=== PATIENT | male | born 1995 | race Hispanic/Latino ===

== ENCOUNTER 2017-08-28 07:20 | Day surgery (SDC) | payer BC ==
[2017-08-25 12:52] LABS: Absolute Lymphocytes (CBC) 2.2 K/uL (0.7-4.9); Absolute Monocytes 0.6 K/uL (0.1-1.3); Absolute Neutrophil 3.5 K/uL (1.8-8.0); Basophils % 0.6 % (0-1.3); Eosinophils % 3.3 % (0-4.4); Hematocrit 43.1 % (39.6-49.0); Lymphocytes % 33.3 % (15.3-44.8); MCH 28.4 pg (27.0-35.0); MCV 84.7 fL (80-100); MPV 7.7 fL (7.6-11.3); Monocytes % 9.5 % (3.3-12.3); RBC Red Blood Cell Count 5.08 M/uL (4.33-5.43)
[2017-08-25 13:00] LABS: Bicarbonate 27 mEq/L (21-31); Glucose Level 96 mg/dL (65-120); Potassium 4.4 mEq/L (3.6-5.0); Sodium Level 141 mEq/L (135-145)
[2017-08-25 13:01] LABS: BUN Blood Urea Nitrogen 13 mg/dL (6-20)
[2017-08-28] MEDS ORDERED: Ringers Lactate 1,000 ML IV ONE (07:37)
[2017-08-28] MEDS ORDERED: LIDOCAINE 2% MPF 5 ML VIAL ONE (08:06)
[2017-08-28] MEDS ORDERED: FENTANYL CITR 100 MCG/2 ML ONE (08:06)
[2017-08-28] MEDS ORDERED: MIDAZOLAM HCL 2 MG/2 ML INJ ONE (08:06)
[2017-08-28] MEDS ORDERED: PROPOFOL 200 MG/20 ML VIAL IV ONE (08:06)
[2017-08-28] MEDS ORDERED: CIPROFLOXACIN 400mg IV 400 MG/200 ML BAG IV ONE (08:31)
[2017-08-28] MEDS ORDERED: KETOROLAC 30 MG/ML INJ ONE (09:01)
--- NOTE | 2017-08-28 09:21 | P.BOP ---
Preoperative diagnosis: perianal pain, bulging, possible fistula Postoperative diagnosis: same, perianal abscess Primary procedure: 1. EUA, 2. Anoscopy, 3. Rigid prostoscopy Secondary procedure: 4. Fistulectomy, 5. I+D perianal abscess Estimated blood loss: <5cc Specimen: culture, fistula bx Findings: posterolateral fistula with associated abscess Anesthesia: General Complications: None Drain(s): Other Transferred to: Recovery Room Condition: Good
[2017-08-28] MEDS ORDERED: CODEINE 30MG/APAP 300MG TAB ONE (10:13)
--- NOTE | 2017-10-16 15:44 | OP ---
Surgeon: Howard Lowery MD Diagnoses: Perianal pain, perianal fistula, perianal abscess. Procedures: Anoscopy, proctoscopy, fistulectomy, I and D of perianal abscess. Disposition: Home. Activity: As tolerated. No heavy lifting. Followup: Follow up in my office in 1 week. Call for appointment [phone]. Instructions: Sitz baths 4 times a day and after every bowel movement. Medications: For medications, see orders. JESSICA/LALO Voice ID: [id number] Report ID: [id number]
--- NOTE | 2017-10-16 21:35 | OP ---
Date of Procedure: 08/28/2017 Surgeon: Howard Lowery MD Preoperative Diagnoses: Perianal pain, perianal bulging, possible fistula. Postoperative Diagnoses: Perianal abscess and fistula. Procedures: 1.Examination under anesthesia. 2.Anoscopy. 3.Rigid proctoscopy. 4.Fistulectomy. 5.Incision and drainage of perianal abscess, complex. Estimated Blood Loss: Less than 5 cc. Specimen: Culture, fistula biopsy. Findings: Posterolateral fistula with an associated deeper abscess. Anesthesia: General plus local. Indications: This is the case of a male, who comes to us with perianal bulging, perianal pain, and t enderness. Fully explained the need for examination under anesthesia, anoscopy, rigid proctoscopy, p ossible hemorrhoidectomy, possible fistulectomy, possible abscess drainage with benefits, alternative s, and risks including, but not limited to infection, bleeding, damage to adjacent structures, anesth esia complication, recurrence, anal stricture and incontinence, [place], and even . He also understa nds this may not relieve any symptoms. He might need more than one surgical intervention. He unders tood and signed a consent. Description Of Procedure: The patient was brought to the operating room, placed in supine position. Anesthesia was done without complication. The patient was placed in lithotomy position with proper protection. A time-out was called. The perianal area was prepped and draped in a sterile fashion. Rectal examination was done followed by a rigid proctoscopy all the way to about 15 cm limited by the amount of stools present with no masses seen. We believe it is a fistula on the posterolateral area of the anus and leading into a bulge in the area that we believe it could be an abscess so at that m oment, I proceeded to put an anoscope with a window on the side. This led me evaluate the anal canal and indeed we noticed a superficial fistula that was cannulized and then left open. This does not i nvolve the sphincter, but this with a deeper abscess on the perianal region and when we ex plored that area, we noticed a complex abscess with multiple loculations. They were explored, opened , and drained. The anal sphincter seems to be intact, fistula superficial to that, and the fistula t ract was removed. The area was cauterized and left to close by secondary intention. The abscess was also an open drain and irrigated until clear. The area was packed. The patient tolerated the proce dure well. Sponge count and instrument counts were correct. The patient tolerated the procedure wel l. The patient was sent to recovery in stable condition. JESSICA/LALO Voice ID: [id number] Report ID: [id number]
== END 2017-08-28 11:30 | disposition home or self-care (01) ==
LOC: OR 07:20
PROVIDERS: ATTEND Surgery
PROC: 0DJD8ZZ Inspection of Lower Intestinal Tract, Via Natural or Artificial Opening Endoscopic (ICD-10-PCS; 2017-08-28)
PROC: 0HB9XZZ Excision of Perineum Skin, External Approach (ICD-10-PCS; principal; 2017-08-28 08:30)
DX: K61.0 Anal abscess (principal); Z88.0 Allergy status to penicillin
CPT/HCPCS: 36415; 80048; 85025; 87070; 87075; 87077; 87186; 87205; 88304; 88305; J0744; J2250; J3010

== ENCOUNTER 2017-10-06 05:58 | Emergency (ER) | payer BC ==
--- NOTE | 2017-10-06 06:52 | EKG ---
Test Date: 2017-10-06 Test Time: 06:19:34 Policewoman: NEELIMA MEASUREMENT RESULTS: Intervals: Rate: 89 ID: [id number] QRSD: 98 QT: 322 QTc: 391 [place]: P: 44 ID: [id number] QRS: 60 T: 9 INTERPRETIVE STATEMENTS: Normal sinus rhythm Nonspecific ST and T wave abnormality Abnormal ECG No previous ECG available for comparison Electronically Signed On 10-06-17 06:51:38 CDT by Sharan Estrada
[2017-10-06 06:58] LABS: Absolute Lymphocytes (CBC) 2.3 K/uL (0.7-4.9); Absolute Monocytes 0.8 K/uL (0.1-1.3); Basophils % 0.6 % (0-1.3); Eosinophils % 2.7 % (0-4.4); Hematocrit 41.4 % (39.6-49.0); Lymphocytes % 31.9 % (15.3-44.8); MCH 28.6 pg (27.0-35.0); MCV 85.6 fL (80-100); Monocytes % 10.3 % (3.3-12.3); RBC Red Blood Cell Count 4.84 M/uL (4.33-5.43)
[2017-10-06 07:04] LABS: Bicarbonate 25 mEq/L (21-31); Glucose Level 112 mg/dL (65-120); Potassium 3.9 mEq/L (3.6-5.0); Sodium Level 139 mEq/L (135-145)
[2017-10-06 07:10] LABS: ALT/SGPT 41 IU/L (10-60); AST/SGOT 34 IU/L (10-42); Albumin 4.3 g/dL (3.2-5.5); Alkaline Phosphatase 61 IU/L (42-121); BUN Blood Urea Nitrogen 15 mg/dL (6-20); Bilirubin Direct 0.1 mg/dL (0-0.2); Bilirubin Total 0.3 mg/dL (0.3-1.2); Creatine Phosphokinase 593 IU/L (22-269); Magnesium 2.2 mg/dL (1.8-2.5); Protein, Total 8.1 g/dL (6.0-8.3)
[2017-10-06 07:16] LABS: CKMB Creatine Kinase MB 1.2 ng/ml (0.3-4.0)
[2017-10-06 07:21] LABS: Protime INR 1.07
--- NOTE | 2017-10-06 07:31 | RAD REPORT ---
EXAM DESCRIPTION: RAD - Chest Single View - 10/06/2017 7:09 am CLINICAL HISTORY: Left-sided numbness, left arm numbness and tingling, shortness of breath COMPARISON: None. TECHNIQUE: AP portable chest image was obtained 0703 hours . FINDINGS: Lungs are clear. Heart and vasculature are normal. No measurable pleural effusion and no p neumothorax. No gross bony abnormality seen. No acute aortic findings suspected. IMPRESSION: No acute cardiopulmonary process.
--- NOTE | 2017-10-06 07:32 | RAD REPORT ---
EXAM DESCRIPTION: CT - Head Brain Wo Cont - 10/06/2017 7:19 am CLINICAL HISTORY: Left-sided body and face numbness and tingling COMPARISON: None. TECHNIQUE: Axial 5 mm thick images of the head were obtained without IV contrast. All CT scans are performed using dose optimization technique as appropriate and may include automated exposure control or mA/KV adjustment according to patient size. FINDINGS: No intracranial hemorrhage, mass, edema or shift of mid-line structures. No acute infarcti on changes seen. No abnormal extra-axial fluid collections. Ventricles are normal. Mastoid air cells and visualized portions of the paranasal sinuses are clear. No acute bony findings. IMPRESSION: Negative non-contrast CT head examination. MR imaging could be performed if there are ongoing clinical concerns for an intracranial neurologic s ource for this symptom pattern.
[2017-10-06] MEDS ORDERED: NA CHLORIDE 0.9% 1,000 ML ONE (08:55)
--- NOTE | 2017-10-06 08:59 | ER ---
Nurse's Notes [facility] Name: Mark Newton Age: 22 yrs Sex: Male : 1995 Arrival Date: 10/06/2017 Time: 05:59 Bed 14 Private MD: Diagnosis: Paresthesia of skin-Left Arm and Leg Presentation: 10/06 06:17 Presenting complaint: Patient states: he is having tingling on left side of his body bb and face since approx 0500 this morning. Transition of care: patient was not received from another setting of care. Onset of symptoms was October 06, 2017 at 05:00. Risk Assessment: Do you want to hurt yourself or someone else? Patient reports no desire to harm self or others. Initial Sepsis Screen: Does the patient meet any 2 criteria? No. Patient's initial sepsis screen is negative. Does the patient have a suspected source of infection? No. Patient's initial sepsis screen is negative. Care prior to arrival: None. 06:17 Method Of Arrival: Ambulatory bb 06:17 Acuity: MARTIN 3 bb Historical: - Allergies: 06:18 PENICILLINS; bb - Home Meds: 06:18 None [Active]; bb - PMHx: 06:18 None; bb - PSHx: 06:18 pilonidal cyst; bb - Immunization history:: Adult Immunizations up to date. - Social history:: Smoking status: Patient/guardian denies using tobacco, Patient/guardian denies using alcohol, street drugs. - Ebola Screening: : No symptoms or risks identified at this time. Screenin:31 Abuse screen: Denies threats or abuse. Nutritional screening: No deficits noted. ea Tuberculosis screening: No symptoms or risk factors identified. Fall Risk None identified. Assessment: 06:20 General: Appears uncomfortable, Behavior is anxious. Pain: Denies pain. Neuro: Reports ea numbness in left arm and left side of face. 07:46 Reassessment: Patient appears in no apparent distress at this time. Patient states ae1 feeling better. Patient states symptoms have improved. 09:43 Reassessment: Patient appears in no apparent distress at this time. IV fluids infusing. ae1 Patient states feeling better. Patient states symptoms have improved. 10:00 Reassessment: Patient is alert, oriented x 3, equal unlabored respirations, skin aa5 warm/dry/pink. Vital Signs: 06:18 BP 156 / 93; Pulse 101; Resp 18 S; Temp 98.4(O); Pulse Ox 97% on R/A; Weight 111.13 kg ea (R); Height 5 ft. 7 in. (170.18 cm) (R); Pain 6/10; 06:18 BP 131 / 76; Pulse 88; Resp 18 S; Pulse Ox 98% on R/A; ea 07:44 BP 132 / 82; Pulse 84; Resp 18; Pulse Ox 97% on R/A; ae1 06:18 Body Mass Index 38.37 (111.13 kg, 170.18 cm) ea ED Course: 05:59 Patient arrived in ED. am2 06:08 Hanny Iraheta, LUCAS is Primary Nurse. ea 06:15 Inserted saline lock: 20 gauge in right antecubital area, using aseptic technique. ea Blood collected. 06:18 Triage completed. bb 06:18 Arm band placed on Patient placed in an exam room, on a stretcher, on pulse oximetry. bb Family accompanied patient. 06:20 Patient has correct armband on for positive identification. Bed in low position. Call ea light in reach. Side rails up X 1. 06:20 EKG done, by ED staff. ea 06:53 Piotr Leyva PA is PHCP. cp 06:53 Lan Page MD is Attending Physician. cp 07:08 X-ray completed. Portable x-ray completed in exam room. Patient tolerated procedure jb2 well. 07:08 XRAY Chest (1 view) In Process Unspecified. EDMS 07:[address] nj 07:19 CT completed. Patient tolerated procedure well. Patient moved back from CT. nj 07:19 CT Head Brain wo Cont In Process Unspecified. EDMS 10:00 No provider procedures requiring assistance completed. aa5 10:00 IV discontinued, intact, bleeding controlled, No redness/swelling at site. Pressure aa5 dressing applied. Administered Medications: 08:56 Drug: NS 0.9% 1000 ml Route: IV; Rate: 1 bolus; Site: right antecubital; ae1 Outcome: 08:59 Discharge ordered by . cp 10:00 Discharged to home ambulatory, with family. aa5 10:00 Condition: stable 10:00 Discharge instructions given to patient, Instructed on discharge instructions, follow up and referral plans. Demonstrated understanding of instructions, follow-up care. 10:02 Patient left the ED. aa5 Signatures: Dispatcher [employer] EDMS Hanson Devante jb2 Flor Brantley RN RN bb Soledad Damon RN RN aa5 Piotr Leyva PA PA cp Elliott, Andrea, RN RN ae1 Be Mcfadden Amanda am2 Hanny Iraheta RN RN ea Corrections: (The following items were deleted from the chart) 07:02 06:18 BP 156 / 93; Pulse 18bpm; Resp 18bpm; Spontaneous; Pulse Ox 97% RA; Temp 98.4F ea Oral; 111.13 kg Reported; Height 5 ft. 7 in. Reported; BMI: 38.3; Pain 6/10; bb
--- NOTE | 2017-10-06 08:59 | EDPHYS ---
Physician Documentation [facility] Name: Mark Newton Age: 22 yrs Sex: Male : 1995 Arrival Date: 10/06/2017 Time: 05:59 Bed 14 Private MD: ED Physician Lan Page HPI: 10/06 07:00 This 22 yrs old Male presents to ER via Ambulatory with complaints of Numbness cp - tingling to arm/leg/face. 07:00 The patient's problem is reported as tingling. Onset: The symptoms/episode cp began/occurred this morning, noticed upon awakening at 0500. Duration: The episode is continuous. Associated signs and symptoms: Pertinent negatives: abdominal pain, chest pain, dizziness, headache, shortness of breath, vertigo, vomiting, weakness. Severity of symptoms: in the emergency department the symptoms have improved mildly. Patient's baseline: Neuro: alert and fully oriented, Motor: no deficits, Ambulation: walks without assistance, Speech: normal. Historical: - Allergies: 06:18 PENICILLINS; bb - Home Meds: 06:18 None [Active]; bb - PMHx: 06:18 None; bb - PSHx: 06:18 pilonidal cyst; bb - Immunization history:: Adult Immunizations up to date. - Social history:: Smoking status: Patient/guardian denies using tobacco, Patient/guardian denies using alcohol, street drugs. - Ebola Screening: : No symptoms or risks identified at this time. ROS: 07:05 Constitutional: Negative for body aches, chills, fever, poor PO intake. cp 07:05 Eyes: Negative for injury, pain, redness, and discharge. cp 07:05 ENT: Negative for drainage from ear(s), ear pain, sore throat, difficulty swallowing, difficulty handling secretions. 07:05 Cardiovascular: Negative for chest pain, edema, palpitations. 07:05 Respiratory: Negative for cough, shortness of breath, wheezing. 07:05 Abdomen/GI: Negative for abdominal pain, nausea, vomiting, and diarrhea, black/tarry stool, rectal bleeding. 07:05 Back: Negative for pain at rest, pain with movement, radiated pain. 07:05 : Negative for urinary symptoms. 07:05 Skin: Negative for cellulitis, rash. 07:05 Neuro: Positive for tingling, of the left arm and left leg, Negative for altered mental status, dizziness, headache, speech changes, weakness. 07:05 All other systems are negative. Exam: 06:25 ECG was reviewed by the Attending Physician. cp 07:12 Constitutional: The patient appears in no acute distress, alert, awake, cp non-diaphoretic, non-toxic, well developed, well nourished. 07:12 Head/Face: Normocephalic, atraumatic. Eyes: Pupils equal round and reactive to light, cp extra-ocular motions intact. Lids and lashes normal. Conjunctiva and sclera are non-icteric and not injected. Cornea within normal limits. Periorbital areas with no swelling, redness, or edema. ENT: Nares patent. No nasal discharge, no septal abnormalities noted. Tympanic membranes are normal and external auditory canals are clear. Oropharynx with no redness, swelling, or masses, exudates, or evidence of obstruction, uvula midline. Mucous membranes moist. Neck: Trachea midline, no thyromegaly or masses palpated, and no cervical lymphadenopathy. Supple, full range of motion without nuchal rigidity, or vertebral point tenderness. No Meningismus. Chest/axilla: Normal chest wall appearance and motion. Nontender with no deformity. No lesions are appreciated. 07:12 Cardiovascular: Rate: tachycardic, Rhythm: regular, Pulses: Pulses are 2+ in right radial artery and left radial artery. Edema: is not appreciated, JVD: is not appreciated. 07:12 Respiratory: the patient does not display signs of respiratory distress, Respirations: normal, no use of accessory muscles, no retractions, no splinting, no tachypnea, labored breathing, is not present, Breath sounds: are clear throughout, no decreased breath sounds, no stridor, no wheezing. 07:12 Abdomen/GI: Inspection: abdomen appears normal, Bowel sounds: active, all quadrants, Palpation: abdomen is soft and non-tender, in all quadrants, rebound tenderness, is not appreciated, voluntary guarding, is not appreciated, involuntary guarding, is not appreciated. 07:12 Back: pain, is absent, ROM is normal. 07:12 Skin: cellulitis, is not appreciated, no rash present. 07:12 Neuro: Orientation: to person, place \T\ time. Mentation: lucid, able to follow commands, Cerebellar function: is grossly normal, Motor: moves all fours, strength is normal, Sensation: tingling, that is mild, of the left arm and left leg. 07:35 Radiologist reports: negative for acute findings cp Vital Signs: 06:18 BP 156 / 93; Pulse 101; Resp 18 S; Temp 98.4(O); Pulse Ox 97% on R/A; Weight 111.13 kg ea (R); Height 5 ft. 7 in. (170.18 cm) (R); Pain 6/10; 06:18 BP 131 / 76; Pulse 88; Resp 18 S; Pulse Ox 98% on R/A; ea 07:44 BP 132 / 82; Pulse 84; Resp 18; Pulse Ox 97% on R/A; ae1 06:18 Body Mass Index 38.37 (111.13 kg, 170.18 cm) ea MDM: 06:53 Patient medically screened. cp 07:00 Differential diagnosis: CVA, TIA, metabolic disorder, drug effects, electrolyte cp abnormality. 08:58 Data reviewed: vital signs, nurses notes, lab test result(s), EKG, radiologic studies, cp CT scan, plain films, and as a result, I will discharge patient. 08:58 Test interpretation: by ED physician or midlevel provider: ECG, plain radiologic cp studies. Counseling: I had a detailed discussion with the patient and/or guardian regarding: the historical points, exam findings, and any diagnostic results supporting the discharge/admit diagnosis, lab results, radiology results, to return to the emergency department if symptoms worsen or persist or if there are any questions or concerns that arise at home. Response to treatment: the patient's symptoms have mildly improved after treatment, and as a result, I will discharge patient. 10/06 06:50 Order name: Basic Metabolic Panel; Complete Time: 07:34 10/06 07:42 Interpretation: Reviewed. 10/06 06:50 Order name: BNP; Complete Time: 07:34 10/06 07:42 Interpretation: BNP < 10; Reviewed. 10/06 06:50 Order name: CBC with Diff; Complete Time: 07:34 10/06 06:50 Order name: Ckmb; Complete Time: 07:34 10/06 08:51 Interpretation: CKMB 1.2; Reviewed. 10/06 06:50 Order name: CPK; Complete Time: 07:34 ea 10/06 07:41 Interpretation: Abnormal: CPK 593. 10/06 06:50 Order name: LFT's; Complete Time: 07:34 ea 10/06 07:41 Interpretation: Normal except: GLOB 3.8. 10/06 06:50 Order name: Magnesium; Complete Time: 07:34 10/06 06:50 Order name: PT-INR; Complete Time: 07:34 ea 10/06 07:41 Interpretation: PT 12.6; Reviewed. 10/06 06:50 Order name: Ptt, Activated; Complete Time: 07:34 10/06 06:50 Order name: Troponin (emerg Dept Use Only); Complete Time: 07:34 10/06 07:42 Interpretation: TROPED < 0.03; Reviewed. 10/06 06:50 Order name: XRAY Chest (1 view); Complete Time: 07:34 10/06 07:06 Order name: CT Head Brain wo Cont; Complete Time: 07:34 10/06 07:34 Interpretation: Report reviewed. 10/06 08:34 Order name: Urine Dipstick--Ancillary (enter results) 10/06 06:50 Order name: EKG; Complete Time: 06:50 ea 10/06 06:50 Order name: Cardiac monitoring; Complete Time: 06:51 ea 10/06 06:50 Order name: EKG - Nurse/Tech; Complete Time: 06:51 ea 10/06 06:50 Order name: IV Saline Lock; Complete Time: 06:51 ea 10/06 06:50 Order name: Labs collected and sent; Complete Time: 06:51 ea 10/06 06:50 Order name: O2 Per Protocol; Complete Time: 06:51 ea 10/06 06:50 Order name: O2 Sat Monitoring; Complete Time: 06:51 ea 10/06 06:50 Order name: Urine Dipstick-Ancillary (obtain specimen); Complete Time: 06:51 ea EC:25 Rate is 89 beats/min. Rhythm is regular. MS interval is normal. QRS interval is normal. cp QT interval is normal. Interpreted by me. Reviewed by me. Administered Medications: 08:56 Drug: NS 0.9% 1000 ml Route: IV; Rate: 1 bolus; Site: right antecubital; ae1 Disposition: 10/06/17 08:59 Discharged to Home. Impression: Paresthesia of skin - Left Arm and Leg. - Condition is Stable. - Discharge Instructions: Paresthesia. - Work release form, Medication Reconciliation Form, Thank You Letter, Antibiotic Education, Prescription Opioid Use form. - Follow up: Private Physician; When: 1 - 2 days; Reason: Recheck today's complaints. - Problem is new. - Symptoms have improved. Addendum: 10/07/2017 22:53 Co-signature as Attending Physician, Lan Page MD I agree with the assessment and t w4 plan of care. Signatures: Dispatcher [employer] EDMS Flor Brantley RN RN bb Soledad Damon RN RN aa5 Piotr Leyva PA PA cp Twan Carbajal RN RN ae1 Hanny Iraheta RN Lan Decker ea, MD MD tw4 Corrections: (The following items were deleted from the chart) 10/06 07:02 07:01 This 22 yrs old Male presents to ER via Ambulatory with complaints of cp Numbness - tingling to arm/leg/face. cp 10:02 08:59 10/06/2017 08:59 Discharged to Home. Impression: Paresthesia of skin - Left Arm aa5 and Leg. Condition is Stable. Forms are Medication Reconciliation Form, Thank You Letter, Antibiotic Education, Prescription Opioid Use. Follow up: Private Physician; When: 1 - 2 days; Reason: Recheck today's complaints. Problem is new. Symptoms have improved. cp
[2017-10-06 10:45] LABS: Urine Blood TRACE (NEG); Urine Glucose NEGATIVE (NEG); Urine Protein NEGATIVE (NEG); Urine Specific Gravity 1.025 (1.005-1.030)
== END 2017-10-06 10:02 | disposition home or self-care (01) ==
LOC: ER 05:58
DX: R20.2 Paresthesia of skin (principal); Z88.0 Allergy status to penicillin
CPT/HCPCS: 36415; 70450; 71045; 80048; 80076; 81003; 82550; 82553; 83735; 83880; 84484; 85025; 85610; 85730; 93005; 99284; J7030

== ENCOUNTER 2019-10-04 01:33 | Emergency (ER) | payer BC ==
--- OUTSIDE RECORDS SUMMARY | 2019-10-04 01:35 | XMS REPORT | Clinical Summary ---
:1995 Author Organization [facility] Address [address] [place] [address] Care Team Providers Name Role Phone Asked, No Pcp Primary Care Provider Unavailable Allergies Active Allergy Reactions Severity Noted Date Comments Penicillins 01/16/2019 Medications No known medications Active Problems No known active problems Encounters Date Type Specialty Care Team Description 03/11/2019 Office Visit General Surgery Brian Lindsay, Fist jesenia, anal (Primary MD Dx) Delisa Thornton 02/27/2019 Orders Only General Surgery Brian Lindsay MD 01/16/2019 Office Visit General Surgery Brian Lindsay, Anal fistula (Primary Dx); Rectal pain after 10/03/2018 Family History Medical History Relation Name Comments Diabetes Maternal Grandmother Hypertension Mother Colon cancer Other Relation Name Status Comments Maternal Grandmother Mother Other Social History Tobacco Use Types Packs/Day Years Used Date Never Smoker Smokeless Tobacco: Never Used Alcohol Use Drinks/Week oz/Week Comments Yes 1 Sex Assigned at Date Recorded Not on file Job Start Date Occupation Industry Not on file Not on file Not on file Travel History Travel Start Travel End No recent travel history available. Last Filed Vital Signs Vital Sign Reading Time Taken Comments Blood Pressure 125/81 03/11/2019 11:50 AM ICD 9 CODER Pulse 96 03/11/2019 11:50 AM ICD 9 CODER Temperature 36.6 C (97.9 F) 03/11/2019 11:50 AM ICD 9 CODER Respiratory Rate - - Oxygen Saturation - - Inhaled Oxygen Concentration - - Weight 113 kg (250 lb) 01/16/2019 9:12 AM CDT Height 170.2 cm (5' 7") 01/16/2019 9:12 AM CDT Body Mass Index 39.16 01/16/2019 9:12 AM CDT Plan of Treatment Health Maintenance Due Date Last Done Comments INFLUENZA VACCINE 12/07/2019 Procedures Procedure Name Priority Date/Time Associated Diagnosis Comme nts SURGICAL PATHOLOGY REQUEST Routine 02/11/2019 after 10/03/2018 Results Surgical pathology request (02/11/2019) Specimen Tissue Narrative Performed At This result has an attachment that is no t available. 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
[2019-10-04 02:37] LABS: Absolute Lymphocytes (CBC) 2.5 K/uL (0.7-4.9); Hematocrit 39.5 % (39.6-49.0); Lymphocytes % 32.6 % (15.3-44.8); MPV 8.1 fL (7.6-11.3); RBC Red Blood Cell Count 4.65 M/uL (4.33-5.43)
[2019-10-04 02:54] LABS: Barbiturates NEGATIVE (NEGATIVE); Benzodiazepines NEGATIVE (NEGATIVE); Cocaine NEGATIVE (NEGATIVE); METHAMPHETAM NEGATIVE (NEGATIVE); Methadone NEGATIVE (NEGATIVE); Opiates NEGATIVE (NEGATIVE); Phencyclidine NEGATIVE (NEGATIVE); THC Cannibis NEGATIVE (NEGATIVE)
[2019-10-04 02:56] LABS: Urine Blood NEGATIVE (NEG); Urine Glucose NEGATIVE (NEG); Urine Protein NEGATIVE (NEG); Urine Specific Gravity 1.025 (1.005-1.030)
[2019-10-04 03:00] LABS: ALT/SGPT 54 U/L (12-78); Albumin 3.8 g/dL (3.4-5.0); Alkaline Phosphatase 87 U/L (45-117); BUN Blood Urea Nitrogen 17 mg/dL (7-18); Bicarbonate 24 mmol/L (21-32); Bilirubin Direct < 0.1 mg/dL (0-0.2); Bilirubin Total 0.3 mg/dL (0.2-1.0); Glucose Level 131 mg/dL (74-106); NT PRO-BNP 16 pg/mL (<125); Potassium 3.7 mmol/L (3.5-5.1); Sodium Level 138 mmol/L (136-145); Troponin (Emerg Dept Use Only) < 0.02 ng/mL (0.0-0.045)
[2019-10-04 03:01] LABS: AST/SGOT 26 U/L (15-37); Magnesium 2.2 mg/dL (1.8-2.4)
[2019-10-04] MEDS ORDERED: KETOROLAC 30 MG/ML INJ ONE (04:26)
[2019-10-04 05:20] VITALS: TEMP 98.4
[2019-10-04 05:21] VITALS: BP 145/85; O2SAT 98
--- NOTE | 2019-10-04 07:37 | RAD REPORT ---
EXAM DESCRIPTION: RAD - Chest Single View - 10/04/2019 2:28 am CLINICAL HISTORY: CHEST PAIN COMPARISON: Portable October 2017 TECHNIQUE: AP portable chest image was obtained 10/04/2019 2:28 am . FINDINGS: Lungs are clear. Heart and vasculature are normal. No measurable pleural effusion and no p neumothorax. No acute bony abnormality seen. No acute aortic findings suspected. IMPRESSION: No acute cardiopulmonary process. No significant interval change.
--- NOTE | 2019-10-04 16:41 | RAD REPORT ---
EXAM DESCRIPTION: CT - Chest For Pe Angio - 10/04/2019 5:08 am CLINICAL HISTORY: CHEST PAIN COMPARISON: None. TECHNIQUE: Axial CT imaging of the thorax utilizing intravenous contrast. Reformatted multiplanar im ages obtained including reconstructed maximum intensity projection images. This exam was performed according to our departmental dose-optimization program which includes automa bandar exposure control, adjustment of the mA and/or kV according to patient size and/or use of iterativ e reconstruction technique FINDINGS: PULMONARY ARTERIES: Normal caliber main pulmonary artery. There is no filling defect with in the right atrium, right ventricle, central or peripheral pulmonary arteries. Complete evaluation o f the pulmonary arteries distally is extremely limited due to motion artifact and beam hardening chiqui fact from the contrast in the superior vena cava. HEART/GREAT VESSELS: Mildly enlarged heart size. No pericardial fluid. Normal caliber thoracic aorta . MEDIASTINUM/EL: No adenopathy. Normal central airways. Normal esophagus. LUNGS/PLEURA: Unremarkable soft tissues and bones. No pulmonary edema. Lungs are well-expanded. Pleu ral spaces are clear. CHEST WALL/SOFT TISSUES: Intact sternum. Unremarkable thoracic spine. Unremarkable remaining bony th orax. Normal image thyroid. No axillary lymphadenopathy. UPPER ABDOMEN: The imaged liver, gallbladder, spleen, pancreas, adrenal glands, kidneys appear carmela l. Unremarkable bowel. No free air. IMPRESSION: 1. No pulmonary embolism. No acute cardiopulmonary finding. 2. Mild cardiac enlargement. Electronically signed by: Omayra Torres DO 10/04/2019 4:06 AM CDT Due to temporary technical issues with the PACS/Fluency reporting system, reports are being signed by the in house radiologist without review asa courtesy to ensure prompt reporting. The interpreting ra diologist is fully responsible for the content of the report.
--- NOTE | 2019-10-05 13:00 | EKG ---
Test Date: 2019-10-04 Test Time: 01:49:26 Chipper Operator: TT MEASUREMENT RESULTS: Intervals: Rate: 84 CT: 158 QRSD: 96 QT: 356 QTc: 420 [place]: P: 38 CT: 158 QRS: 57 T: 11 INTERPRETIVE STATEMENTS: Normal sinus rhythm Nonspecific T wave abnormality Abnormal ECG Compared to ECG 10/06/2017 06:19:34 T-wave abnormality now present ST (T wave) deviation no longer present Electronically Signed On 10-05-19 13:00:00 CDT by Ej Johnson
--- NOTE | 2019-10-07 16:43 | EDPHYS ---
Physician Documentation [facility] Name: Mark Newton Age: 24 yrs Sex: Male : 1995 Arrival Date: 10/04/2019 Time: 01:34 Bed 6 Private MD: ED Physician Laith Still HPI: 10/03 02:33 This 24 yrs old Male presents to ER via Ambulatory with complaints of Chest mh7 Pain, Back Pain. 02:33 The patient or guardian reports chest pain that is located primarily in the anterior mh7 chest wall, mid-sternal area. The pain does not radiate. Associated signs and symptoms: Pertinent negatives: abdominal pain, cough, diaphoresis, dizziness, headache, lower extremity pain, lower extremity swelling, lightheadedness, nausea, near syncope, palpitations, recent travel, shortness of breath, syncope, vomiting. The chest pain is described as sharp. Duration: The patient or guardian reports multiple episodes, that are intermittent, that wax and wane, with no pattern. Modifying factors: The symptoms are alleviated by remaining still, the symptoms are aggravated by palpation of area. Severity of pain: At its worst the pain was moderate today, in the emergency department the pain has improved moderately. Historical: - Allergies: 01:43 PENICILLINS; rr5 - Home Meds: 01:43 None [Active]; rr5 - PMHx: 01:43 None; rr5 - PSHx: 01:43 None; rr5 - Immunization history:: Adult Immunizations up to date. - Social history:: Smoking status: unknown Patient uses alcohol, only on a social basis. Patient/guardian denies using street drugs, tobacco products. ROS: 02:33 Constitutional: Negative for fever, chills, and weight loss, Eyes: Negative for injury, mh7 pain, redness, and discharge, ENT: Negative for injury, pain, and discharge, Neck: Negative for injury, pain, and swelling, Respiratory: Negative for shortness of breath, cough, wheezing, and pleuritic chest pain, Abdomen/GI: Negative for abdominal pain, nausea, vomiting, diarrhea, and constipation, Back: Negative for injury and pain, : Negative for injury, bleeding, discharge, and swelling, MS/Extremity: Negative for injury and deformity, Skin: Negative for injury, rash, and discoloration, Neuro: Negative for headache, weakness, numbness, tingling, and seizure, Psych: Negative for depression, anxiety, suicide ideation, homicidal ideation, and hallucinations, Allergy/Immunology: Negative for hives, rash, and allergies, Endocrine: Negative for neck swelling, polydipsia, polyuria, polyphagia, and marked weight changes, Hematologic/Lymphatic: Negative for swollen nodes, abnormal bleeding, and unusual bruising. Exam: 02:33 Constitutional: This is a well developed, well nourished patient who is awake, alert, mh7 and in no acute distress. Head/Face: Normocephalic, atraumatic. Eyes: Pupils equal round and reactive to light, extra-ocular motions intact. Lids and lashes normal. Conjunctiva and sclera are non-icteric and not injected. Cornea within normal limits. Periorbital areas with no swelling, redness, or edema. Neck: Trachea midline, no thyromegaly or masses palpated, and no cervical lymphadenopathy. Supple, full range of motion without nuchal rigidity, or vertebral point tenderness. No Meningismus. 02:33 Cardiovascular: Regular rate and rhythm with a normal S1 and S2. No gallops, murmurs, or rubs. Normal PMI, no JVD. No pulse deficits. Respiratory: Lungs have equal breath sounds bilaterally, clear to auscultation and percussion. No rales, rhonchi or wheezes noted. No increased work of breathing, no retractions or nasal flaring. Abdomen/GI: Soft, non-tender, with normal bowel sounds. No distension or tympany. No guarding or rebound. No evidence of tenderness throughout. Back: No spinal tenderness. No costovertebral tenderness. Full range of motion. Skin: Warm, dry with normal turgor. Normal color with no rashes, no lesions, and no evidence of cellulitis. MS/ Extremity: Pulses equal, no cyanosis. Neurovascular intact. Full, normal range of motion. Neuro: Awake and alert, GCS 15, oriented to person, place, time, and situation. Cranial nerves II-XII grossly intact. Motor strength 5/5 in all extremities. Sensory grossly intact. Cerebellar exam normal. Normal gait. Psych: Awake, alert, with orientation to person, place and time. Behavior, mood, and affect are within normal limits. 02:33 Chest/axilla: Inspection: normal, Palpation: tenderness, that is moderate, that totally reproduces the patient's complaints. 03:56 ECG was reviewed by the Attending Physician. 7 Vital Signs: 01:40 BP 158 / 91; Pulse 92; Resp 17; Temp 98.4; Pulse Ox 96% ; Weight 117.93 kg; Height 5 rr5 ft. 7 in. (170.18 cm); Pain 7/10; 03:00 BP 145 / 85; Pulse 90; Resp 16; Pulse Ox 98% ; rr5 04:00 BP 131 / 89; Pulse 91; Resp 18; Pulse Ox 98% on R/A; rr5 05:00 BP 126 / 75; Pulse 82; Resp 16; Temp 97.8; Pulse Ox 99% ; rr5 01:40 Body Mass Index 40.72 (117.93 kg, 170.18 cm) rr5 MDM: 02:17 Patient medically screened. [facility] 04:23 Differential diagnosis: acute myocardial infarction, acute pericarditis, chest wall [facility] pain, costochondritis, esophagitis, gastroesophageal reflux disease (GERD), pneumonia, pneumothorax, pulmonary embolus, thoracic aortic disection. HEART Score: History: Slightly Suspicious (0), ECG: Normal (0), Age: < or = 45 years (0), Risk Factors: No Risk Factors Known (0), Troponin: < or = 1 x Normal Limit (0), Total Score = 0. Data reviewed: vital signs, nurses notes, lab test result(s), cardiac enzymes, CBC, electrolytes, urine drug screen, EKG, radiologic studies, CT scan, plain films. Data interpreted: monitoring analyst: rate is 85 beats/min, rhythm is normal sinus rhythm, Interpretation: normal rate, normal rhythm, Pulse oximetry: on room air is 98 %. Interpretation: normal. Counseling: I had a detailed discussion with the patient and/or guardian regarding: the historical points, exam findings, and any diagnostic results supporting the discharge/admit diagnosis, the presence of at least one elevated blood pressure reading (>120/80) during this emergency department visit, lab results, radiology results, the need for outpatient follow up. 10/03 02:00 Order name: Basic Metabolic Panel; Complete Time: 03:08 rr5 10/03 02:00 Order name: CBC with Diff; Complete Time: 03:08 10/03 02:00 Order name: LFT's; Complete Time: 03:08 10/03 02:00 Order name: Magnesium; Complete Time: 03:08 10/03 02:00 Order name: NT PRO-BNP; Complete Time: 03:08 10/03 02:00 Order name: PT-INR; Complete Time: 03:08 10/03 02:01 Order name: Troponin (emerg Dept Use Only); Complete Time: 03:08 10/03 02:01 Order name: XRAY Chest (1 view) 10/03 02:01 Order name: EKG; Complete Time: 02:01 10/03 02:01 Order name: Cardiac monitoring; Complete Time: 02:04 10/03 02:18 Order name: UDS; Complete Time: 03:08 10/03 02:32 Order name: Urine Dipstick--Ancillary (enter results); Complete Time: 03:08 sd 10/03 03:12 Order name: CT Chest For PE Angio 10/03 02:01 Order name: EKG - Nurse/Tech; Complete Time: 02:03 10/03 02:01 Order name: IV Saline Lock; Complete Time: 02:31 10/03 02:01 Order name: Labs collected and sent; Complete Time: 02:31 10/03 02:01 Order name: O2 Per Protocol; Complete Time: 02:03 10/03 02:01 Order name: O2 Sat Monitoring; Complete Time: 02:03 rr EC:56 Rate is 84 beats/min. Rhythm is regular. QRS Gregory is Normal. DE interval is normal. QRS mh7 interval is normal. QT interval is normal. No Q waves. T waves are Normal. No ST changes noted. Clinical impression: Normal ECG. Administered Medications: 04:22 Drug: TORadol 30 mg Route: IVP; Site: right antecubital; rr5 05:05 Follow up: Response: No adverse reaction; Marked relief of symptoms rr5 Disposition: 10/04/19 04:58 Discharged to Home. Impression: Chest pain, unspecified. - Condition is Stable. - Discharge Instructions: Nonspecific Chest Pain. - Medication Reconciliation Form, Thank You Letter, Antibiotic Education, Prescription Opioid Use form. - Follow up: Private Physician; When: 2 - 3 days; Reason: Worsening of condition, Re-evaluation by your physician. - Problem is new. - Symptoms are resolved. Signatures: Dispatcher [employer] Azam Brooks RN RN rr5 Laith Still MD MD mh7 Corrections: (The following items were deleted from the chart) 05:12 04:58 10/04/2019 04:58 Discharged to Home. Impression: Chest pain, unspecified. rr5 Condition is Stable. Forms are Medication Reconciliation Form, Thank You Letter, Antibiotic Education, Prescription Opioid Use. Follow up: Private Physician; When: 2 - 3 days; Reason: Worsening of condition, Re-evaluation by your physician. Problem is new. Symptoms are resolved. mh7
--- NOTE | 2019-10-07 16:43 | ER ---
Nurse's Notes [facility] Name: Mark Newton Age: 24 yrs Sex: Male : 1995 Arrival Date: 10/04/2019 Time: 01:34 Bed 6 Private MD: Diagnosis: Chest pain, unspecified Presentation: 10/03 01:40 Chief complaint: Patient states: sudden chest pain going to my back started around rr5 0100H today. 01:40 Coronavirus screen: Proceed with normal triage. Ebola Screen: Patient negative for rr5 fever greater than or equal to 101.5 degrees Fahrenheit, and additional compatible Ebola Virus Disease symptoms Patient denies exposure to infectious person. Patient denies travel to an Ebola-affected area in the 21 days before illness onset. Initial Sepsis Screen: Does the patient meet any 2 criteria? No. Patient's initial sepsis screen is negative. Does the patient have a suspected source of infection? No. Patient's initial sepsis screen is negative. Risk Assessment: Do you want to hurt yourself or someone else? Patient reports no desire to harm self or others. Onset of symptoms was October 04, 2019 at 01:00. 01:40 Method Of Arrival: Ambulatory rr5 01:40 Acuity: MARTIN 3 rr5 Historical: - Allergies: 01:43 PENICILLINS; rr5 - Home Meds: 01:43 None [Active]; rr5 - PMHx: 01:43 None; rr5 - PSHx: 01:43 None; rr5 - Immunization history:: Adult Immunizations up to date. - Social history:: Smoking status: unknown Patient uses alcohol, only on a social basis. Patient/guardian denies using street drugs, tobacco products. Screenin:44 Abuse screen: Denies threats or abuse. Denies injuries from another. Nutritional rr5 screening: No deficits noted. Tuberculosis screening: No symptoms or risk factors identified. Fall Risk None identified. Total Main Fall Scale indicates No Risk (0-24 pts). Assessment: 01:43 General: Appears in no apparent distress. uncomfortable, Behavior is calm, cooperative, rr5 appropriate for age. Pain: Complains of pain in chest Pain radiates to back Pain currently is 7 out of 10 on a pain scale. Quality of pain is described as aching, Pain began suddenly, Is intermittent. Neuro: Level of Consciousness is awake, alert, obeys commands, Oriented to person, place, time, situation, Appropriate for age. Cardiovascular: Reports chest pain, Capillary refill < 3 seconds Patient's skin is warm and dry. Respiratory: Airway is patent Respiratory effort is even, unlabored, Respiratory pattern is regular, symmetrical. GI: No signs and/or symptoms were reported involving the gastrointestinal system. : No signs and/or symptoms were reported regarding the genitourinary system. EENT: No signs and/or symptoms were reported regarding the EENT system. Derm: Skin is intact, is healthy with good turgor, Skin temperature is warm. Musculoskeletal: Circulation, motion, and sensation intact. Capillary refill < 3 seconds. 03:15 Reassessment: Patient appears in no apparent distress at this time. No changes from rr5 previously documented assessment. Patient is alert, oriented x 3, equal unlabored respirations, skin warm/dry/pink. send for CT PE angio. 04:00 Reassessment: Patient appears in no apparent distress at this time. Patient is alert, rr5 oriented x 3, equal unlabored respirations, skin warm/dry/pink. no complaints made, awaiting for results. 05:00 Reassessment: Patient appears in no apparent distress at this time. Patient is alert, rr5 oriented x 3, equal unlabored respirations, skin warm/dry/pink. discharge instruction given and explained without complaint made. Patient denies pain at this time. Patient states feeling better. Patient states symptoms have improved. Vital Signs: 01:40 BP 158 / 91; Pulse 92; Resp 17; Temp 98.4; Pulse Ox 96% ; Weight 117.93 kg; Height 5 rr5 ft. 7 in. (170.18 cm); Pain 7/10; 03:00 BP 145 / 85; Pulse 90; Resp 16; Pulse Ox 98% ; rr5 04:00 BP 131 / 89; Pulse 91; Resp 18; Pulse Ox 98% on R/A; rr5 05:00 BP 126 / 75; Pulse 82; Resp 16; Temp 97.8; Pulse Ox 99% ; rr5 01:40 Body Mass Index 40.72 (117.93 kg, 170.18 cm) rr5 ED Course: 01:34 Patient arrived in ED. cl3 01:36 Azam Ramires, LUCAS is Primary Nurse. rr5 01:37 Laith Still MD is Attending Physician. mh7 01:43 Triage completed. rr5 01:43 Arm band placed on right wrist. rr5 01:45 Patient has correct armband on for positive identification. Bed in low position. Call rr5 light in reach. under ground miner on. Pulse ox on. NIBP on. 01:54 EKG done, by glass technician. tt3 02:18 Inserted saline lock: 20 gauge in right forearm, using aseptic technique. ,using rr5 aseptic technique. inserted by xander/ jeffrey cinetechnician Blood collected. 02:28 XRAY Chest (1 view) In Process Unspecified. EDMS 02:30 Patient maintains SpO2 saturation greater than 95% on room air. rr5 02:31 Urine collected: clean catch specimen, clear. rr5 03:46 CT Chest For PE Angio In Process Unspecified. EDMS 05:10 No provider procedures requiring assistance completed. IV discontinued, intact, rr5 bleeding controlled, No redness/swelling at site. Pressure dressing applied. Administered Medications: 04:22 Drug: TORadol 30 mg Route: IVP; Site: right antecubital; rr5 05:05 Follow up: Response: No adverse reaction; Marked relief of symptoms rr5 Outcome: 04:58 Discharge ordered by . 7 05:10 Discharged to home ambulatory. rr5 05:10 Condition: stable 05:10 Discharge instructions given to patient, Instructed on discharge instructions, follow up and referral plans. Demonstrated understanding of instructions, follow-up care, medications, Prescriptions given X 1. 05:12 Patient left the ED. rr5 Signatures: [facility] Azam Ramires RN RN rr5 Melissa Pastrana 3 Laith Still MD MD 7 Xander Montelongo tt3 Corrections: (The following items were deleted from the chart) 02:30 02:18 Inserted saline lock: 20 gauge forearm, using aseptic technique. tt3 rr5
== END 2019-10-04 05:12 | disposition home or self-care (01) ==
LOC: ER 01:33
DX: R07.9 Chest pain, unspecified (principal); Z88.0 Allergy status to penicillin
CPT/HCPCS: 93005; 85025; 80048; 36415; 83735; 85610; 80076; 80307 ×8; 81003; 84484; 83880; 71275; 71045; 96374; 99285; Q9967

== ENCOUNTER 2021-04-04 04:12 | Emergency (ER) | payer BC ==
--- OUTSIDE RECORDS SUMMARY | 2021-04-04 04:15 | XMS REPORT | Continuity of Care Document ---
:1995 Author Organization [facility] t Address [address] [place] [address] Dr. Grace [address] [place] [id number] Care Team Providers Name Role Phone LEXI WADDELL Attending Clinician Unavailable DARYL MARS Attending Clinician Unavailable Payers Payer Name Policy Type Policy Number Effective Date Expiration Date S brittny [facility] [facility] - [id number] 00:00:00 OUT OF STATE Problems This patient has no known problems. Allergies, Adverse Reactions, Alerts Allergy Allergy Status Severity Reaction(s) Onset Inactive Treating Comm ents Source Name Type Date Date Clinician NO KNOWN Drug Active [facility] Medications This patient has no known medications. Procedures This patient has no known procedures. Encounters Start End Encounter Admission Attending Care Care Encounter Source Date/Time Date/Time Type Type Clinicians Facility Department ID 2020-11-23 2020-11-23 Outpatient [facility] [id number] [facility] 18:00:00 18:00:00 [id number] [facility] 2020-11-23 2020-11-23 Outpatient Myra WADDELL [facility] [id number] [facility] 18:00:00 18:00:00 LEXI [facility] 2020-07-20 2020-07-20 Outpatient [facility] [id number] [facility] 11:40:00 11:40:00 [id number] [facility] 2020-07-20 2020-07-20 Outpatient Myra MARS [facility] [id number] [facility] 11:40:00 11:40:00 DARYL lopez [facility] 2019-11-06 2019-11-06 Outpatient Myra MARS [facility] [id number] [facility] 07:00:00 07:00:00 DARYL [facility] Results This patient has no known results.
[2021-04-04] MEDS ORDERED: ONDANSETRON 4 MG/2 ML VIAL ONE (05:28)
[2021-04-04] MEDS ORDERED: MORPHINE 4 MG/ML SYR ONE (05:28)
[2021-04-04] MEDS ORDERED: NA CHLORIDE 0.9% 1,000 ML ONE (05:28)
[2021-04-04 05:30] LABS: Urine Blood Trace-intact (Negative); Urine Glucose Negative (Negative); Urine Protein Negative (Negative); Urine Specific Gravity >=1.030 (1.005-1.030); Urine pH 5.5 (5.0-7.0)
[2021-04-04 05:32] LABS: Absolute Lymphocytes (CBC) 2.3 K/uL (0.7-4.9); Basophils % 0.7 % (0-1.3); Hematocrit 41.7 % (39.6-49.0); Lymphocytes % 27.9 % (15.3-44.8); MPV 7.3 fL (7.6-11.3); RBC Red Blood Cell Count 4.96 M/uL (4.33-5.43)
[2021-04-04 05:51] LABS: ALT/SGPT 59 U/L (12-78); AST/SGOT 22 U/L (15-37); Albumin 3.8 g/dL (3.4-5.0); Alkaline Phosphatase 89 U/L (45-117); BUN Blood Urea Nitrogen 14 mg/dL (7-18); Bicarbonate 22 mmol/L (21-32); Bilirubin Direct < 0.1 mg/dL (0-0.2); Bilirubin Total 0.2 mg/dL (0.2-1.0); Glucose Level 136 mg/dL (74-106); Lipase 127 U/L (73-393); Potassium 3.5 mmol/L (3.5-5.1); Protein, Total 8.5 g/dL (6.4-8.2); Sodium Level 138 mmol/L (136-145)
--- NOTE | 2021-04-04 08:55 | ER ---
Nurse's Notes [facility] Name: Mark Newton Age: 25 yrs Sex: Male : 1995 Arrival Date: 04/04/2021 Time: 04:15 Bed 6 Private MD: Diagnosis: Abdominal pain, unspecified;Diarrhea, unspecified;Nausea Presentation: 04/04 05:00 Chief complaint: Patient states: he has been having abdominal pain with diarrhea since bb approx 0300 this morning. Coronavirus screen: At this time, the client does not indicate any symptoms associated with coronavirus-19. Ebola Screen: No symptoms or risks identified at this time. Initial Sepsis Screen: Does the patient meet any 2 criteria? No. Patient's initial sepsis screen is negative. Does the patient have a suspected source of infection? No. Patient's initial sepsis screen is negative. Risk Assessment: Do you want to hurt yourself or someone else? Patient reports no desire to harm self or others. Onset of symptoms was April 04, 2021. 05:00 Method Of Arrival: Ambulatory bb 05:00 Acuity: MARTIN 3 bb Triage Assessment: 06:03 General: Appears in no apparent distress. Behavior is calm, cooperative. Pain: bb Complains of pain in suprapubic area Pain radiates to right lower quadrant. Neuro: Level of Consciousness is awake, alert, obeys commands, Oriented to person, place, time, situation. Cardiovascular: Capillary refill < 3 seconds Patient's skin is warm and dry. Respiratory: Airway is patent Respiratory effort is even, unlabored, Respiratory pattern is regular. GI: Abdomen is obese, Bowel sounds present X 4 quads. Abd is soft X 4 quads. Derm: Skin is pink, warm \T\ dry. Musculoskeletal: Circulation, motion, and sensation intact. Historical: - Allergies: 06:03 PENICILLINS; bb - Home Meds: 06:03 None [Active]; bb - PMHx: 06:03 None; bb - PSHx: 06:03 None; bb - Immunization history:: Adult Immunizations up to date, Client reports having NOT received the Covid vaccine. - Social history:: Smoking status: Patient denies any tobacco usage or history of. Screenin:30 Abuse screen: Denies threats or abuse. Nutritional screening: No deficits noted. bb Tuberculosis screening: No symptoms or risk factors identified. Fall Risk None identified. Assessment: 05:30 Reassessment: No changes from previously documented assessment. Patient is alert, bb oriented x 3, equal unlabored respirations, skin warm/dry/pink. 07:03 Reassessment: Patient appears in no apparent distress at this time. Patient states lp1 feeling better. Patient states symptoms have improved. Pain: Complains of pain in suprapubic area Pain currently is 0 out of 10 on a pain scale. Quality of pain is described as sharp, stabbing. 09:10 Reassessment: PT D/C HOME AMBULATORY WITH FAMILY, DX WITH FOOD POISONING. bp Vital Signs: 05:12 BP 131 / 71; Pulse 94; Resp 16; Temp 97.9(O); Pulse Ox 100% on R/A; Weight 122.47 kg; ds4 Height 5 ft. 7 in. (170.18 cm); Pain 0/10; 07:02 BP 141 / 66; Pulse 83; Resp 18; Pulse Ox 98% on R/A; lp1 09:10 BP 124 / 66; Pulse 77; Resp 16; Temp 98; Pulse Ox 99% ; bp 05:12 Body Mass Index 42.29 (122.47 kg, 170.18 cm) ds4 ED Course: 04:15 Patient arrived in ED. bp1 04:47 Laith Still MD is Attending Physician. mh7 05:14 Inserted saline lock: 20 gauge in left forearm, using aseptic technique. Blood ds4 collected. 05:30 Arm band placed on. bb 05:30 Patient has correct armband on for positive identification. Bed in low position. Call bb light in reach. Adult w/ patient. Pulse ox on. NIBP on. 06:03 Triage completed. bb 06:16 CT Abd/Pelvis - IV Contrast Only In Process Unspecified. EDMS 07:03 Dexter Simeon, RN is Primary Nurse. bp 07:03 Basic Metabolic Panel Sent. bp 07:06 David Marquis NP is PHCP. pm1 09:10 No provider procedures requiring assistance completed. IV discontinued, intact, bp bleeding controlled, No redness/swelling at site. Pressure dressing applied. Administered Medications: 05:30 Drug: NS 0.9% 1000 ml Route: IV; Rate: 1000 ml; Site: left forearm; bb 09:11 Follow up: IV Status: Completed infusion; IV Intake: 1000ml bp 05:30 Drug: Zofran (Ondansetron) 4 mg {Note: RASS 0.} Route: IVP; Site: left forearm; bb 07:04 Follow up: Response: No adverse reaction bp 05:33 Drug: morphine 4 mg {Note: RASS 0.} Route: IVP; Site: right forearm; bb 07:03 Follow up: Response: Pain is decreased bp Intake: 09:11 IV: 1000ml; Total: 1000ml. bp Outcome: 08:54 Discharge ordered by . pm1 09:10 Discharged to home ambulatory, with family. bp 09:10 Condition: stable 09:10 Discharge instructions given to patient, Instructed on discharge instructions, follow up and referral plans. medication usage, Demonstrated understanding of instructions, follow-up care, medications, Prescriptions given X 2. 09:12 Patient left the ED. bp Signatures: Dispatcher [employer] EDFlor Julian RN RN bb Mitzy Rodriguez, RN RN lp1 Nicholas Esparza ds4 David Marquis, SERGEANT MISSILE CREWMAN SERGEANT MISSILE CREWMAN pm1 Dexter Simeon RN RN bp Kimberly Escobar Maurice, MD MD 7
--- NOTE | 2021-04-04 08:55 | EDPHYS ---
Physician Documentation [facility] Name: Mark Newton Age: 25 yrs Sex: Male : 1995 Arrival Date: 04/04/2021 Time: 04:15 Bed 6 Private MD: ED Physician Laith Still HPI: 04/04 05:05 This 25 yrs old Male presents to ER via Unassigned with complaints of mh7 Abdominal Pain. 05:05 The patient presents with abdominal pain in the lower abdomen. Onset: The mh7 symptoms/episode began/occurred today, at 03:00. The symptoms do not radiate. Associated signs and symptoms: Pertinent positives: nausea, Pertinent negatives: anorexia, blood in stools, chest pain, constipation, diarrhea, dysuria, fever, headache, hematuria, palpitations, shortness of breath, testicular pain, vomiting, vomiting blood. The symptoms are described as intermittent, vague, waxing/waning. Modifying factors: The symptoms are alleviated by nothing, the symptoms are aggravated by nothing. Severity of pain: At its worst the pain was moderate today, in the emergency department the pain has improved moderately. Historical: - Allergies: 06:03 PENICILLINS; bb - Home Meds: 06:03 None [Active]; bb - PMHx: 06:03 None; bb - PSHx: 06:03 None; bb - Immunization history:: Adult Immunizations up to date, Client reports having NOT received the Covid vaccine. - Social history:: Smoking status: Patient denies any tobacco usage or history of. ROS: 05:05 Constitutional: Negative for fever, chills, and weight loss, Eyes: Negative for injury, mh7 pain, redness, and discharge, ENT: Negative for injury, pain, and discharge, Neck: Negative for injury, pain, and swelling, Cardiovascular: Negative for chest pain, palpitations, and edema, Respiratory: Negative for shortness of breath, cough, wheezing, and pleuritic chest pain, Back: Negative for injury and pain, : Negative for injury, bleeding, discharge, and swelling, MS/Extremity: Negative for injury and deformity, Skin: Negative for injury, rash, and discoloration, Neuro: Negative for headache, weakness, numbness, tingling, and seizure, Psych: Negative for depression, anxiety, suicide ideation, homicidal ideation, and hallucinations, Allergy/Immunology: Negative for hives, rash, and allergies, Endocrine: Negative for neck swelling, polydipsia, polyuria, polyphagia, and marked weight changes, Hematologic/Lymphatic: Negative for swollen nodes, abnormal bleeding, and unusual bruising. Exam: 05:05 Constitutional: This is a well developed, well nourished patient who is awake, alert, mh7 and in no acute distress. Head/Face: Normocephalic, atraumatic. Eyes: Pupils equal round and reactive to light, extra-ocular motions intact. Lids and lashes normal. Conjunctiva and sclera are non-icteric and not injected. Cornea within normal limits. Periorbital areas with no swelling, redness, or edema. Neck: Trachea midline, no thyromegaly or masses palpated, and no cervical lymphadenopathy. Supple, full range of motion without nuchal rigidity, or vertebral point tenderness. No Meningismus. Chest/axilla: Normal chest wall appearance and motion. Nontender with no deformity. No lesions are appreciated. Cardiovascular: Regular rate and rhythm with a normal S1 and S2. No gallops, murmurs, or rubs. Normal PMI, no JVD. No pulse deficits. Respiratory: Lungs have equal breath sounds bilaterally, clear to auscultation and percussion. No rales, rhonchi or wheezes noted. No increased work of breathing, no retractions or nasal flaring. 05:05 Back: No spinal tenderness. No costovertebral tenderness. Full range of motion. Skin: Warm, dry with normal turgor. Normal color with no rashes, no lesions, and no evidence of cellulitis. MS/ Extremity: Pulses equal, no cyanosis. Neurovascular intact. Full, normal range of motion. Neuro: Awake and alert, GCS 15, oriented to person, place, time, and situation. Cranial nerves II-XII grossly intact. Motor strength 5/5 in all extremities. Sensory grossly intact. Cerebellar exam normal. Normal gait. Psych: Awake, alert, with orientation to person, place and time. Behavior, mood, and affect are within normal limits. 05:05 Abdomen/GI: Inspection: obese Bowel sounds: normal, in all quadrants, Palpation: moderate abdominal tenderness, in the suprapubic area and right lower quadrant, mass, is not appreciated, rebound tenderness, is not appreciated, voluntary guarding, is not appreciated, involuntary guarding, is not appreciated, no appreciated organomegaly, Rectal exam: the exam is deferred, because of patient request, Indicators: McBurney's point is not tender, Barajas's sign is negative, Rovsing's sign is negative, Obturator sign is negative, Psoas sign is negative, Liver: no appreciated palpable abnormalities, Hernia: not appreciated. Vital Signs: 05:12 BP 131 / 71; Pulse 94; Resp 16; Temp 97.9(O); Pulse Ox 100% on R/A; Weight 122.47 kg; ds4 Height 5 ft. 7 in. (170.18 cm); Pain 0/10; 07:02 BP 141 / 66; Pulse 83; Resp 18; Pulse Ox 98% on R/A; lp1 09:10 BP 124 / 66; Pulse 77; Resp 16; Temp 98; Pulse Ox 99% ; bp 05:12 Body Mass Index 42.29 (122.47 kg, 170.18 cm) ds4 MDM: 07:16 Patient medically screened. pm1 08:43 Data reviewed: vital signs. Data interpreted: Pulse oximetry: on room air is 98 %. pm1 Interpretation: normal. 08:43 Counseling: I had a detailed discussion with the patient and/or guardian regarding: the pm1 historical points, exam findings, and any diagnostic results supporting the discharge/admit diagnosis, lab results, radiology results, the need for outpatient follow up, to return to the emergency department if symptoms worsen or persist or if there are any questions or concerns that arise at home. 08:52 ED course: Patient microwaved frozen pizza rolls that he ate at midnight. Likely cause pm1 for the patient's nausea, diarrhea and abdominal pain. CT ab/pelvis without any acute findings. 04/04 05:05 Order name: Basic Metabolic Panel [facility] 04/04 05:05 Order name: CBC with Diff; Complete Time: 05:41 [facility] 04/04 05:05 Order name: Hepatic Function; Complete Time: 05:59 [facility] 04/04 05:05 Order name: Lipase; Complete Time: 05:59 [facility] 04/04 05:05 Order name: Basic Metabolic Panel; Complete Time: 05:59 [facility] 04/04 05:30 Order name: Urine Dipstick-Ancillary; Complete Time: 05:41 [facility] 04/04 05:05 Order name: IV Saline Lock; Complete Time: 05:14 [facility] 04/04 05:05 Order name: Labs collected and sent; Complete Time: 05:14 [facility] 04/04 05:05 Order name: Urine Dipstick-Ancillary (obtain specimen); Complete Time: 05:30 [facility] 04/04 05:05 Order name: CT Abd/Pelvis - IV Contrast Only [facility] Administered Medications: 05:30 Drug: NS 0.9% 1000 ml Route: IV; Rate: 1000 ml; Site: left forearm; bb 09:11 Follow up: IV Status: Completed infusion; IV Intake: 1000ml bp 05:30 Drug: Zofran (Ondansetron) 4 mg {Note: RASS 0.} Route: IVP; Site: left forearm; bb 07:04 Follow up: Response: No adverse reaction bp 05:33 Drug: morphine 4 mg {Note: RASS 0.} Route: IVP; Site: right forearm; bb 07:03 Follow up: Response: Pain is decreased bp Disposition: 23:22 Co-signature as Attending Physician, Laith Still MD. [facility] Disposition Summary: 04/04/21 08:54 Discharge Ordered Location: Home pm1 Problem: new pm1 Symptoms: have improved pm1 Condition: Stable pm1 Diagnosis - Abdominal pain, unspecified pm1 - Diarrhea, unspecified pm1 - Nausea pm1 Followup: pm1 - With: Emergency Department - When: As needed - Reason: Worsening of condition Followup: pm1 - With: Private Physician - When: 2 - 3 days - Reason: Recheck today's complaints, Continuance of care, Re-evaluation by your physician Discharge Instructions: - Discharge Summary Sheet pm1 - Abdominal Pain, Adult pm1 - Food Poisoning pm1 - Food Choices to Help Relieve Diarrhea, Adult pm1 - Diarrhea, Adult pm1 Forms: - Medication Reconciliation Form pm1 - Thank You Letter pm1 - Antibiotic Education pm1 - Prescription Opioid Use pm1 Prescriptions: - ondansetron 4 mg Oral tablet,disintegrating - place 1 tablet by TRANSLINGUAL route every 8 hours As needed; 12 tablet; pm1 Refills: 0, Product Selection Permitted - dicyclomine 20 mg Oral Tablet - take 1 tablet by ORAL route every 6 hours As needed; 20 tablet; Refills: 0, pm1 Product Selection Permitted Signatures: Dispatcher [employer] Flor Vera, RN RN bb David Marquis, KATELYN BRAND SPECIALIST pm1 Laith Still MD MD 7 Dexter Simeon RN bp
[2021-04-04 09:22] VITALS: BP 124/66; TEMP 98; O2SAT 99
--- NOTE | 2021-04-05 11:57 | RAD REPORT ---
EXAM DESCRIPTION: CT Abdomen and Pelvis With Intravenous Contrast CLINICAL HISTORY: The patient is 25 years years old, Male; ABD PAIN TECHNIQUE: Axial computed tomography images of the abdomen with intravenous contrast. Sagittal and coronal reformatted images were created and reviewed. This CT exam was performed using one or more of the following dose reduction techniques: automated exposure control, adjustment of the mA and/o r kV according to patient size, and/or use of iterative reconstruction technique. COMPARISON: No relevant prior studies available. FINDINGS: LUNG BASES: The visualized lung bases show no evidence of mass, pulmonary nodules or gr oss consolidation. Suspect minimal discoid atelectasis and/or scarring in the lingula. PLEURAL SPACE: There is no evidence of pleural effusions or pneumothoraces. ABDOMEN: LIVER: Unremarkable. The liver is normal in size and configuration. There are no significant foc al defects. There is no evidence of biliary ductal dilatation. GALLBLADDER AND BILE DUCTS: Unremarkable. There is no evidence of calculi or pericholecystic infla mmatory changes. There is no biliary ductal dilatation. PANCREAS: Unremarkable. No ductal dilatation, inflammatory changes or mass. SPLEEN: Unremarkable. No splenomegaly or focal defects. ADRENALS: Unremarkable. No mass or calcification. KIDNEYS AND URETERS: There are no acute findings in the kidneys. There is no evidence of solid mas s, hydronephrosis or radiopaque nonobstructive intrarenal calculi. Tiny hypodensities in the kidneys, one on the right and one on the left, are technically too small to characterize. STOMACH AND BOWEL: The stomach, small bowel, colon and rectum are unremarkable, allowing for areas of peristalsis, i.e decompression. No evidence of intestinal obstruction or acute inflammatory merly nges. PELVIS: APPENDIX: The appendix is present and appears normal. BLADDER: Unremarkable, allowing for the degree of distention. There is no evidence of cystolithias is or bladder mass. REPRODUCTIVE: The prostate and seminal vesicles are unremarkable. ABDOMEN and PELVIS: INTRAPERITONEAL SPACE: There is no evidence of free air. BONES/JOINTS: There is no evidence of acute fracture, osseous destruction or osteoblastic changes. There is a slight dextroconvex lumbar curve SOFT TISSUES: There is a small fat-containing umbilical hernia. The superficial soft tissues are oth erwise unremarkable. VASCULATURE: Unremarkable. No abdominal aortic aneurysm. LYMPH NODES: Unremarkable. There is no evidence of mesenteric, retroperitoneal, pelvic or ingui nal adenopathy. IMPRESSION: No acute findings in the abdomen or pelvis. I Electronically signed by: Laura Bernard MD 04/04/2021 8:36 AM PRECISION MACHINIST Due to temporary technical issues with the PACS/Fluency reporting system, reports are being signed by the in house radiologist without review as a courtesy to ensure prompt reporting. The interpreting r adiologist is fully responsible for the content of the report.
== END 2021-04-04 09:12 | disposition home or self-care (01) ==
LOC: ER 04:12
DX: R19.7 Diarrhea, unspecified (principal); R11.0 Nausea; Z88.0 Allergy status to penicillin
CPT/HCPCS: 85025; 80048; 36415; 80076; 81003; 83690; 74177; 99284; Q9967; J7030; J2405

== ENCOUNTER 2021-09-21 09:41 | Emergency (ER) | payer BC ==
--- OUTSIDE RECORDS SUMMARY | 2021-09-21 09:45 | XMS REPORT | Continuity of Care Document ---
:1995 Author Organization [facility] t Address [address] [place] [address] [place] [id number] Care Team Providers Name Role Phone Yonas Mack DO Primary Care Physician LAB90 Attending Clinician Unavailable Yonas Mack DO Attending Clinician JESSEE HUNTER Attending Clinician Unavailable SUNDEEP Attending Clinician Unavailable NADIRA Attending Clinician Unavailable JERAD Attending Clinician Unavailable Payers Payer Name Policy Type Policy Number Effective Date Expiration Date [facility] [id number] 2021 00:00:00 [employer] [place] - [id number] 2019 00:00:00 OUT OF STATE Problems Condition Condition Condition Status Onset Resolution Last Treating Co mments Source Name Details Category Date Date Treatment Clinician Date Acute Acute Disease Active Pooja right-side right-side 5-05 Se ybold d low back d low back 00:00: pain pain 00 without without sciatica sciatica Class 2 Class 2 Disease Active Pooja obesity obesity 5-05 Seybold due to due to 00:00: excess excess 00 calories calories without without serious serious comorbidit comorbidit y with y with body mass body mass index index (BMI) of (BMI) of 35.0 to 35.0 to 35.9 in 35.9 in adult adult Asymptomat Asymptomat Disease Active K elsey ic ic 5-05 Seybold microscopi microscopi 00:00: c c 00 hematuria hematuria Allergies, Adverse Reactions, Alerts Allergy Allergy Status Severity Reaction(s) Onset Inactive Treating Comm ents Source Name Type Date Date Clinician Penicill Paulensi Active Other Pooja ins ty to 4-19 reaction( Seybold adverse 00:00: s): reaction 00 Hives/Fili s h NO KNOWN Drug Active [facility] ALLERGIE Class ity of S [facility] Social History Social Habit Start Date Stop Date Quantity Comments Source History SDOH Pooja Seybo ld Alcohol Std Drinks History SDOH Pooja Seybo ld Alcohol Binge History SDOH Pooja Seybo ld Alcohol Frequency Alcohol intake 2021-09-17 2021-09-17 Pooja Sey bold 00:00:00 00:00:00 Alcohol Comment 2021-09-09 2021-09-09 rarely Pooja Vences ybold 00:00:00 00:00:00 Education 2021-09-09 2021-09-09 16 Pooja Seybold 00:00:00 00:00:00 Tobacco use and 2021-09-09 2021-09-09 Smokeless tobacco Ke jarocho Vencesybold exposure 00:00:00 00:00:00 non-user Sex Ass[birth year] At [birth year] Pooja Vences ybold 00:00:00 00:00:00 Smoking Status Start Date Stop Date Source Never smoked tobacco Poojasemaj Washburn demarco Medications Ordered Filled Start Stop Current Ordering Indication Dosage Frequency Signature Comments Components Source Medication Medication Date Date Medication? Clinician (SIG) Name Name Tizanidine 2021- [id number] 2mg [id number] Take 1 Pooja HCl 2 MG 5-10 09-17 [id number] tablet (2 Seybold oral Tablet 00:00: 00:00 3D mg total) 00 :00 by mouth 3 times daily as needed for muscle spasms Meloxicam Yes [id number] 15mg QD Take 1 K elsey 15 MG oral 5-05 tablet (15 Sey bold Tablet 00:00: mg total) 00 by mouth daily as needed for pain Tizanidine Yes [id number] 2mg Q.[id number] Take 1 Pooja HCl 2 MG 5-05 [id number] capsule (2 Seybold oral 00:00: 3D mg total) Capsule 00 by mouth 3 times daily as needed for muscle spasms Meloxicam 2021- No [id number] 15mg QD Take 1 Pooja 15 MG oral 09-09 tablet (15 Se ybold Tablet 00:00: 00:00 mg total) 00 :00 by mouth daily as needed for pain Vital Signs Vital Name Observation Time Observation Value Comments Source Systolic blood pressure 2021-09-17 13:26:00 129 mm[Hg] Pooja Seybold Diastolic blood 2021-09-17 13:26:00 70 mm[Hg] Kelse y Seybold pressure Heart rate 2021-09-17 13:26:00 69 /min Pooja S eybold Body temperature 2021-09-17 13:26:00 36.06 Radha Yenny ey Seybold Respiratory rate 2021-09-17 13:26:00 14 /min Yenny ey Seybold Body height 2021-09-17 13:26:00 170.2 cm Pooja S eybold Body weight 2021-09-17 13:26:00 111.585 kg Pooja S eybold BMI 2021-09-17 13:26:00 38.53 kg/m2 Pooja S eybold Systolic blood pressure 2021-09-09 20:06:00 134 mm[Hg] Pooja Seybold Diastolic blood 2021-09-09 20:06:00 62 mm[Hg] Kelse y Seybold pressure Heart rate 2021-09-09 20:06:00 78 /min Pooja S eybold Body temperature 2021-09-09 20:06:00 36.72 Radha Yenny ey Seybold Respiratory rate 2021-09-09 20:06:00 14 /min Yenny ey Seybold Body height 2021-09-09 20:06:00 170.2 cm Pooja Vaz eybold Body weight 2021-09-09 20:06:00 113.853 kg Pooja S eybold BMI 2021-09-09 20:06:00 39.31 kg/m2 Pooja S eybold Oxygen saturation in 2021-09-09 20:06:00 99 /min Pooja Vencesybold Arterial blood by Pulse oximetry Procedures Procedure Date / Time Performed Performing Clinician Sourc e URINALYSIS NONAUTO W/O 2021-09-09 20:37:00 Yonas Mack Marlo y ybdemarco SCOPE Encounters Start End Encounter Admission Attending Care Care Encounter Source Date/Time Date/Time Type Type Clinicians Facility Department ID 2021-09-17 2021-09-17 Outpatient LAB90 POOJA POOJA [id number] Pooja 09:00:00 09:00:00 Seybol d 2021-09-17 2021-09-17 Office Joyjosé luisRomeo vaz [id number] Pooja 08:30:00 08:45:00 Visit Yonas Arevalo [id number] Se ybold [id number] 2021-09-14 2021-09-14 Outpatient HUNTERPOOJA [id number] Pooja 00:00:00 00:00:00 JESSEE Seybol d 2021-09-14 2021-09-14 Outpatient SUNDEEP POOJA LEONG [id number] Pooja 00:00:00 00:00:00 YONAS Seybol d 2021-09-09 2021-09-09 Outpatient LAB90 POOJA LEONG [id number] Pooja 15:50:00 15:50:00 Seybol d 2021-09-09 2021-09-09 Office Joyjosé luisRomeo vaz [id number] Pooja 15:00:00 15:15:00 Visit Yonas Arevalo [id number] Se ybold [id number] 2020-11-23 2020-11-23 Outpatient [facility] [id number] [facility] 18:00:00 18:00:00 [id number] [facility] 2020-11-23 2020-11-23 [facility] [id number] [facility] 18:00:00 18:00:00 LEXI [facility] 2020-07-20 2020-07-20 Outpatient [facility] [id number] [facility] 11:40:00 11:40:00 [id number] [facility] 2020-07-20 2020-07-20 [facility] [id number] [facility] 11:40:00 11:40:00 [facility]L [facility] 2019-11-06 2019-11-06 Outpatient R JERAD, [facility] [id number] [facility] 07:00:00 07:00:00 DARYL [facility] Results Test Description Test Time Test Comments Results Result Comments Source URINALYSIS NONAUTO W/O SCOPE 2021-09-09 00:00:00 Test Item Value Reference Range Interpretation Comme nts UD KETONES (test code = neg 5-160 950851) UD GLUCOSE (test code = neg 100-2000 773595) UD PROTEIN (test code = neg Trace - 2000 mg/dL 373613) UD LEUKOCYTES (test code = neg Trace - Large @ 2 325740) min. UD NITRITE (test code = neg Neg. - Pos. @ 60 449464) sec. UD UROBILINOGEN (test code = 0.2 mg/dL 0.2-8 999978) UD PH (test code = 857877) See_Comment [Automated message] The system which ge nerated this result tra nsmitted reference range : 5.0 - 8.5 @ 60 sec.. The reference range was not used to interpr et this result as normal/abnormal . UD BLOOD (test code = 749523) trace Neg. - Large @ 60 sec. UD SPECIFIC GRAVITY (test code = 084170) UD BILIRUBIN (test code = 844916) Lab Interpretation (test code Abnormal = 53666-6) Pooja Wood
[2021-09-21 10:54] LABS: Urine Blood Negative (Negative); Urine Glucose Negative (Negative); Urine Protein Negative (Negative)
[2021-09-21 11:30] LABS: Hematocrit 41.6 % (39.6-49.0); Lymphocytes % 21.5 % (15.3-44.8); MPV 7.6 fL (7.6-11.3)
[2021-09-21 11:31] LABS: Absolute Lymphocytes (CBC) 1.6 K/uL (0.7-4.9)
[2021-09-21] MEDS ORDERED: NA CHLORIDE 0.9% 1,000 ML ONE (11:36)
[2021-09-21 11:46] LABS: Albumin 4.3 g/dL (3.4-5.0); Bilirubin Total 0.4 mg/dL (0.2-1.0); Protein, Total 8.4 g/dL (6.4-8.2)
--- NOTE | 2021-09-21 12:17 | RAD REPORT ---
EXAM DESCRIPTION: CT - Abdomen Pelvis W Contrast - 09/21/2021 12:05 pm CLINICAL HISTORY: Flank pain, kidney stone suspected COMPARISON: Abdomen Pelvis W Contrast dated 04/04/2021 TECHNIQUE: Biphasic, helical CT imaging of the abdomen and pelvis was performed following 100 ml non -ionic IV contrast. No oral contrast administered. All CT scans are performed using dose optimization technique as appropriate and may include automated exposure control or mA/KV adjustment according to patient size. FINDINGS: No suspicious findings in the lung bases. The liver, spleen, and pancreas show no suspicious findings. Gallbladder and biliary tree are also wi thout suspicious finding. Symmetric renal function is seen with no hydronephrosis or suspicious renal mass. No pyelonephritis o r acute parenchymal process. No bladder abnormalities. No adrenal abnormalities. No dilated bowel loops or bowel wall thickening. No free air, free fluid or inflammatory stranding. No mass or bulky lymphadenopathy seen. Patient has minimal bilateral fat only inguinal hernias. No suspicious bony findings. Central canal detail is inherently limited but grossly unremarkable. IMPRESSION: Contrast enhanced CT abdomen and pelvis showing no significant or suspicious finding.
--- NOTE | 2021-09-21 12:33 | EDPHYS ---
Physician Documentation [facility] Name: Mark Newton Age: 26 yrs Sex: Male : 1995 Arrival Date: 09/21/2021 Time: 09:45 Bed DIS3 Private MD: ED Physician Piotr Parekh HPI: 09/21 11:09 This 26 yrs old Male presents to ER via Ambulatory with complaints of Low Back pm1 Pain, Headache. 11:09 The patient complains of pain in the right low back. The pain radiates to the right pm1 lower quadrant. Onset: The symptoms/episode began/occurred 2 week(s) ago. Modifying factors: The symptoms are alleviated by nothing. the symptoms are aggravated by movement. Associated signs and symptoms: Pertinent positives: headache, Pertinent negatives: diarrhea, dysuria, fever, nausea, vomiting. Severity of pain: in the emergency department the pain is unchanged. The patient has not experienced similar symptoms in the past. The patient has been recently seen by a physician: the patient's primary care provider, Dr. Mack with similar presenting complaints, X-rays of back and ultrasound of kidney ordered but not completed by patient. Patient prescribed pain medications. Patient did not fill his muscle relaxant. Historical: - Allergies: 10:25 PENICILLINS; ww - Home Meds: 10:25 None [Active]; ww - PMHx: 10:25 None; ww - PSHx: 10:25 None; ww - Immunization history:: Adult Immunizations up to date. - Social history:: Smoking status: Patient denies any tobacco usage or history of. ROS: 11:09 Constitutional: Negative for fever, chills, and weight loss, Cardiovascular: Negative pm1 for chest pain, palpitations, and edema, Respiratory: Negative for shortness of breath, cough, wheezing, and pleuritic chest pain. 11:09 : Negative for injury, bleeding, discharge, and swelling, MS/Extremity: Negative for injury and deformity, Skin: Negative for injury, rash, and discoloration. 11:09 Abdomen/GI: Positive for abdominal pain, of the right lower quadrant, Negative for nausea, vomiting, and diarrhea. 11:09 Back: Positive for flank pain, on the right. 11:09 Neuro: Positive for headache. 11:09 All other systems are negative. Exam: 11:09 Constitutional: This is a well developed, well nourished patient who is awake, alert, pm1 and in no acute distress. Head/Face: Normocephalic, atraumatic. 11:09 Skin: Warm, dry with normal turgor. Normal color with no rashes, no lesions, and no evidence of cellulitis. MS/ Extremity: Pulses equal, no cyanosis. Neurovascular intact. Full, normal range of motion. 11:09 Eyes: Exam is negative for acute changes, Periorbital structures: appear normal, Pupils: no acute changes, Extraocular movements: no acute changes. 11:09 ENT: Exam is negative for acute changes. 11:09 Cardiovascular: Rate: normal, Rhythm: regular, Pulses: no pulse deficits are appreciated, Heart sounds: normal. 11:09 Respiratory: Exam negative for acute changes, respiratory distress, shortness of breath, Breath sounds: are clear throughout. 11:09 Abdomen/GI: Inspection: abdomen appears normal, Palpation: abdomen is soft and non-tender, in all quadrants. 11:09 Back: pain, of the right low back, muscle spasm, is appreciated in the right low back. 11:09 Neuro: Exam negative for acute changes, Orientation: is normal, Mentation: is normal, Motor: is normal, moves all fours. Vital Signs: 10:24 BP 137 / 94; Pulse 79; Resp 18; Temp 98.4; Pulse Ox 99% ; Weight 113.4 kg; Height 5 ft. ww 7 in. (170.18 cm); Pain 5/10; 10:24 Body Mass Index 39.16 (113.40 kg, 170.18 cm) MDM: 11:09 Patient medically screened. pm1 12:30 Data reviewed: vital signs. Data interpreted: Pulse oximetry: on room air is 99 %. pm1 Interpretation: normal. Counseling: I had a detailed discussion with the patient and/or guardian regarding: the historical points, exam findings, and any diagnostic results supporting the discharge/admit diagnosis, lab results, radiology results, the need for outpatient follow up, to return to the emergency department if symptoms worsen or persist or if there are any questions or concerns that arise at home. 09/21 10:54 Order name: Urine Dipstick-Ancillary; Complete Time: 11:02 EDNM 05/17 11:08 Order name: CBC with Diff; Complete Time: 11:43 pm1 09/21 11:08 Order name: CMP; Complete Time: 11:56 pm1 09/21 11:08 Order name: Lipase; Complete Time: 11:56 pm1 09/21 11:08 Order name: CT Abd/Pelvis - IV Contrast Only; Complete Time: 12:19 pm1 09/21 11:08 Order name: IV Saline Lock; Complete Time: 11:30 pm1 09/21 11:08 Order name: Labs collected and sent; Complete Time: 11:30 pm1 Administered Medications: 11:33 Drug: NS 0.9% 1000 ml Route: IV; Rate: 1 bolus; Site: left antecubital; jl7 12:30 Follow up: IV Status: Completed infusion iw 12:51 Drug: Ketorolac 30 mg Route: IVP; Site: left antecubital; iw 13:30 Follow up: Response: No adverse reaction; Pain is decreased iw 12:51 Drug: Flexeril (cyclobenzaprine) 10 mg Route: PO; iw 13:30 Follow up: Response: No adverse reaction iw 12:52 Drug: Lidoderm Patch 5 % (700 mg/patch) 1 patches Route: Topical; Site: affected area; iw Disposition Summary: 09/21/21 12:33 Discharge Ordered Location: Home pm1 Problem: new pm1 Symptoms: have improved pm1 Condition: Stable pm1 Diagnosis - Low back pain pm1 Followup: pm1 - With: Yosi Mack DO - When: 2 - 3 days - Reason: Recheck today's complaints, Continuance of care, Re-evaluation by your physician Discharge Instructions: - Discharge Summary Sheet pm1 - Acute Back Pain, Adult pm1 - Back Injury Prevention, [id number] pm1 Forms: - Medication Reconciliation Form pm1 - Thank You Letter pm1 - Antibiotic Education pm1 - Prescription Opioid Use pm1 Prescriptions: - Lidoderm 5 % Topical adhesive patch,medicated - apply 1 patch by TOPICAL route once daily As needed 12 hours on and 12 hours pm1 off in a 24 hour period; 10 patch; Refills: 0, Product Selection Permitted - Cyclobenzaprine 10 mg Oral Tablet - take 1 tablet by ORAL route every 8 hours As needed; 30 tablet; Refills: 0, pm1 Product Selection Permitted Signatures: Dispatcher [employer] Jasmin Bush, RN RN iw David Marquis, JACQUARD FIXER JACQUARD FIXER pm1 Mikie Gray RN RN jl7 Roslyn Portillo RN RN ww Corrections: (The following items were deleted from the chart) 10: 10:25 PSHx: Unable to Obtain; catalina arnold 11:01 10:26 URINALYSIS+U.LAB.BRZ ordered. ED EDMS
--- NOTE | 2021-09-21 12:33 | ER ---
Nurse's Notes [facility] Name: Mark Newton Age: 26 yrs Sex: Male : 1995 Arrival Date: 09/21/2021 Time: 09:45 Bed DIS3 Private MD: Diagnosis: Low back pain Presentation: 09/21 10:24 Chief complaint: Patient states: Right back pain that started last week and now ww radiating to the front pelvic region with nausea. Coronavirus screen: Vaccine status: Patient reports receiving the 2nd dose of the covid vaccine. Client denies travel out of the [place] in the last 14 days. Ebola Screen: Patient denies travel to an Ebola-affected area in the 21 days before illness onset. Initial Sepsis Screen: Does the patient meet any 2 criteria? No. Patient's initial sepsis screen is negative. Does the patient have a suspected source of infection? No. Patient's initial sepsis screen is negative. Risk Assessment: Do you want to hurt yourself or someone else? Patient reports no desire to harm self or others. Onset of symptoms is unknown. 10:24 Method Of Arrival: Ambulatory ww 10:24 Acuity: MARTIN 3 ww Triage Assessment: 10:25 General: Appears uncomfortable, Behavior is cooperative. Pain: Complains of pain in ww back and abdomen. Neuro: Black Agitation-Sedation Scale (RASS): 0 - Alert and Calm Level of Consciousness is awake, alert, obeys commands, Oriented to person, place, time, situation, Moves all extremities. Speech is normal. Cardiovascular: Patient's skin is warm and dry. Respiratory: Airway is patent Respiratory effort is even, unlabored, Respiratory pattern is regular, symmetrical. Historical: - Allergies: 10:25 PENICILLINS; ww - Home Meds: 10:25 None [Active]; ww - PMHx: 10:25 None; ww - PSHx: 10:25 None; ww - Immunization history:: Adult Immunizations up to date. - Social history:: Smoking status: Patient denies any tobacco usage or history of. Screenin:42 Abuse screen: Denies threats or abuse. Denies injuries from another. Nutritional iw screening: No deficits noted. Tuberculosis screening: No symptoms or risk factors identified. Fall Risk IV access (20 points). Assessment: 11:41 General: Appears in no apparent distress. Behavior is calm, cooperative. Pain: iw Complains of pain in abdomen and back. Neuro: Level of Consciousness is awake, alert, obeys commands, Oriented to person, place, time, situation, Moves all extremities. Full function. Cardiovascular: Patient's skin is warm and dry. Respiratory: Respiratory effort is even, unlabored, Respiratory pattern is regular, symmetrical. Derm: Skin is intact, is healthy with good turgor. Vital Signs: 10:24 BP 137 / 94; Pulse 79; Resp 18; Temp 98.4; Pulse Ox 99% ; Weight 113.4 kg; Height 5 ft. ww 7 in. (170.18 cm); Pain 5/10; 10:24 Body Mass Index 39.16 (113.40 kg, 170.18 cm) ww ED Course: 09:45 Patient arrived in ED. ds1 10:25 Triage completed. ww 10:25 Arm band placed on. ww 10:40 David Marquis NP is PHCP. pm1 10:40 Piotr Parekh MD is Attending Physician. pm1 11:33 Jasmin Davis, LUCAS is Primary Nurse. iw 11:42 Initial lab(s) drawn, by ky, sent to lab. Inserted saline lock: 20 gauge in left iw antecubital area, using aseptic technique. Blood collected. 12:06 CT Abd/Pelvis - IV Contrast Only In Process Unspecified. EDMS 12:33 Yosi Makc DO is Referral Physician. pm1 13:30 No provider procedures requiring assistance completed. IV discontinued, intact, iw bleeding controlled, No redness/swelling at site. Pressure dressing applied. Administered Medications: 11:33 Drug: NS 0.9% 1000 ml Route: IV; Rate: 1 bolus; Site: left antecubital; jl7 12:30 Follow up: IV Status: Completed infusion iw 12:51 Drug: Ketorolac 30 mg Route: IVP; Site: left antecubital; iw 13:30 Follow up: Response: No adverse reaction; Pain is decreased iw 12:51 Drug: Flexeril (cyclobenzaprine) 10 mg Route: PO; iw 13:30 Follow up: Response: No adverse reaction iw 12:52 Drug: Lidoderm Patch 5 % (700 mg/patch) 1 patches Route: Topical; Site: affected area; iw Outcome: 12:33 Discharge ordered by . pm1 13:30 Discharged to home ambulatory. iw 13:30 Condition: good 13:30 Discharge instructions given to patient, Instructed on discharge instructions, follow up and referral plans. Demonstrated understanding of instructions, follow-up care, medications, Prescriptions given X 2. 13:30 Patient left the ED. iw Signatures: Dispatcher [employer] ED Kirstin Sorto ds1 Jasmin Davis RN RN iw David Marquis, DRAFTER DIRECTIONAL SURVEY DRAFTER DIRECTIONAL SURVEY pm1 Mikie Gray RN RN jl7 Roslyn Portillo RN RN ww Corrections: (The following items were deleted from the chart) 10:25 10:25 PSHx: Unable to Obtain; catalina arnold
[2021-09-21] MEDS ORDERED: CYCLOBENZAPRINE 10 MG TAB ONE (12:50)
[2021-09-21] MEDS ORDERED: KETOROLAC 30 MG/ML INJ ONE (12:51)
[2021-09-21] MEDS ORDERED: LIDOCAINE 4% PATCH ONE (12:51)
[2021-09-21 13:40] VITALS: BP 137/94; TEMP 98.4; O2SAT 99
== END 2021-09-21 13:30 | disposition home or self-care (01) ==
LOC: ER 09:41
DX: M54.50 Low back pain, unspecified (principal); R51.9 Headache, unspecified; Z88.0 Allergy status to penicillin
CPT/HCPCS: 85025; 36415; 81003; 83690; 80053; 74177; Q9967; J7030; 96361; 96374; 99284